=== PATIENT | male | born 1970 | race Caucasian/White ===

== ENCOUNTER 2022-09-29 11:25 | Outpatient (CLI) | payer OTHER, SELFPAY ==
[2022-09-29 12:50] LABS: Cholesterol* 189 mg/dL (90-199); Glucose* 108 mg/dL (60-115); Triglycerides* 157 mg/dL (40-149)
[2022-09-29 12:51] LABS: HDL Cholesterol* 63 mg/dL (>=40); LDL Cholesterol Calculated 95 mg/dL (<100)
== END 2022-09-29 11:26 | disposition home or self-care (01) ==
PROVIDERS: PCP Internal Medicine; Visit Provider Internal Medicine
DX: E78.5 Hyperlipidemia, unspecified (principal); Z13.1 Encounter for screening for diabetes mellitus
CPT/HCPCS: 80061; 82947

== ENCOUNTER 2022-11-04 08:15 | Outpatient (CLI) | payer OTHER, SELFPAY ==
--- NOTE | 2022-11-04 09:31 | W.ANESCHARGE ---
Anesthesia Charges Start Date/Time Anesthesia Start Date: 11/04/22 Anesthesia Start Time: 09:00 Stop Date/Time Anesthesia Stop Date: 11/04/22 Anesthesia Stop Time: 09:26 Summary Emergency: No
--- NOTE | 2022-11-04 09:45 | W.ANESCHARGE ---
Anesthesia Charges Start Date/Time Anesthesia Start Date: 11/04/22 Anesthesia Start Time: 09:00 Stop Date/Time Anesthesia Stop Date: 11/04/22 Anesthesia Stop Time: 09:26 Summary Emergency: No
== END 2022-11-04 08:16 | disposition home or self-care (01) ==
LOC: OP CLINIC 08:17
PROVIDERS: PCP Internal Medicine; Visit Provider Internal Medicine
DX: Z12.11 Encounter for screening for malignant neoplasm of colon (principal)
CPT/HCPCS: 00811; 00813; 45378; J2704

== ENCOUNTER 2022-11-08 10:00 | Outpatient (CLI) | payer OTHER, SELFPAY ==
[2022-11-08 12:22] LABS: Chloride* 105 mmol/L (96-114); Potassium* 4.1 mmol/L (3.6-5.1); Sodium* 140 mmol/L (135-149)
[2022-11-08 12:25] LABS: Blood Urea Nitrogen* 20 mg/dL (7-30); Carbon Dioxide* 30 mmol/L (20-32); Estimated Glomerular Filt Rate 91 ml/min
[2022-11-08 12:26] LABS: Calcium* 9.7 mg/dL (8.4-10.6); Glucose* 118 mg/dL (60-115)
== END 2022-11-08 10:01 | disposition home or self-care (01) ==
LOC: NFLDREF 10:01
PROVIDERS: PCP Internal Medicine; Visit Provider Internal Medicine
DX: I10 Essential (primary) hypertension (principal)
CPT/HCPCS: 80048

== ENCOUNTER 2022-12-06 09:00 | Outpatient (RCR) | payer OTHER, SELFPAY | END 2023-05-11 23:59 | disposition home or self-care (01) | PROVIDERS: PCP Internal Medicine; Visit Provider Internal Medicine | DX: M25.511 Pain in right shoulder (principal); Z51.89 Encounter for other specified aftercare | CPT/HCPCS: 97110; 97140; 97161 ==

== ENCOUNTER 2024-01-18 08:19 | Outpatient (CLI) | payer OTHER, SELFPAY | END 2024-01-18 08:20 | disposition home or self-care (01) | LOC: NFLDREF 01-19 06:54 | PROVIDERS: PCP Internal Medicine; Referring Provider Internal Medicine; Visit Provider Internal Medicine | DX: Z00.00 Encounter for general adult medical examination without abnormal findings (principal); E78.5 Hyperlipidemia, unspecified; I10 Essential (primary) hypertension; R73.03 Prediabetes; F41.1 Generalized anxiety disorder | CPT/HCPCS: 80048; 80061 ==

== ENCOUNTER 2024-01-25 12:54 | Outpatient (CLI) | payer OTHER, SELFPAY ==
[2024-01-25 13:42] LABS: Lab Add On Test New Spec Needed
== END 2024-01-25 12:55 | disposition home or self-care (01) ==
PROVIDERS: PCP Internal Medicine; Visit Provider Internal Medicine
DX: Z12.5 Encounter for screening for malignant neoplasm of prostate (principal)
CPT/HCPCS: G0103

== ENCOUNTER 2025-04-23 08:07 | Outpatient (CLI) | payer BC, SELFPAY | END 2025-04-23 08:08 | disposition home or self-care (01) | LOC: NFLDREF 04-27 05:43 | PROVIDERS: PCP Internal Medicine; Referring Provider Internal Medicine; Visit Provider Internal Medicine | DX: E78.5 Hyperlipidemia, unspecified (principal); R73.03 Prediabetes; I10 Essential (primary) hypertension; Z12.5 Encounter for screening for malignant neoplasm of prostate | CPT/HCPCS: 80048; 80061; 83695; G0103 ==